=== PATIENT | female | born 1985 | race Caucasian/White ===

== ENCOUNTER 2017-03-07 17:18 | Observation (INO) | payer OTHER ==
--- NOTE | 2017-03-07 18:40 | OBPROG ---
OBG Progress Note Assessment/Plan: Assessment:cat 1 fhr otis denies pain exam /- cephalic nitrazine negative, ferning negative,polling negative amnisure negative vs wnl Plan:discharge to home with instructions fu appt on thursday in the office 03/07/17 18:37 Subjective: Came in with complaint of leaking of fluid at 1300 today. FHR (bpm): 135 FHR Pattern Variability: Moderate FHR Category: 1 Membranes: Intact ICD10 Worksheet Patient Problems: Problems Problem Status Onset ro srom Acute
--- NOTE | 2017-03-07 19:13 | GHP ---
[f rep st] HISTORY AND PHYSICAL DATE OF ADMISSION: 03/07/2017 Patient is a 31-year-old, 1, para 0, with an EDC of 03/08/2017 which gives her a gestational age of 39 and 6/7 weeks. She comes in with complaint of rupture of membranes since 1300 on 03/07/2017. States feeling positive movement. Denies bleeding. States feeling irregular contractions. The patient has been routinely being seen at [facility], [place] since 07/30/2016 at 8 weeks and 4 days. At that time, an initial ultrasound confirmed dates of 03/08/2017. There was no change. PAST MEDICAL HISTORY: Benign. PAST SURGICAL HISTORY: [place] teeth extractions, ear tubes, fractured back, left breast lumpectomy, previous climbing accident. Other medical history of pescatarian diet. FAMILY HISTORY: Noncontributory. GYNECOLOGICAL HISTORY: Abnormal Pap with , will re-pap . Previously patient using condoms and OCPs for contraception. SOCIAL HISTORY: Patient is . No alcohol history. No drug history. PHYSICAL EXAMINATION: GENERAL: Patient is awake, alert, oriented x3. LUNGS: Clear bilaterally. ABDOMEN: Bowel sounds are positive in all 4 quadrants. EXTREMITIES: DTRs are 1+ bilaterally. No clonus. Homans' sign is negative bilaterally. GENITOURINARY: The uterus was soft on palpation. MEDICATIONS: Patient is taking vitamins and DHA. ALLERGIES: Patient is sensitive to Ceclor and Vicodin and allergic to penicillin. LABORATORIES: Patient is O positive, antibody negative. RPR is nonreactive. Rubella is immune. Hepatitis is negative. HIV is negative. Trio screen was negative. TSH on 08/13/2016 was 1.2. Pap was within normal limits. HPV was negative. Gonorrhea and chlamydia are negative. AFP was negative. Verify was negative. One hour GTT was within normal limits. Twenty-eight week hematocrit was within normal limits at 63.3. PLAN OF CARE: 1. Today speculum exam. 2. Nitrazine was negative. Ferning was negative. Pooling was negative. An AmniSure was sent that was found to be negative. An exam was done as the patient is otis irregularly without pain. Some change to the cervix from previous exam last week. Patient at that time was 1:250 and ballotable. At this time, today 2 cm, 75% effaced, -2 cephalic. Again, patient denies regular contractions and pain with the contractions. Plan of care is discharge to home with instructions of reasons to return and follow up on Thursday for a clinic appointment. /[id number]/MODL MTDD
== END 2017-03-07 19:07 | disposition home or self-care (01) ==
LOC: FLD 17:18
PROVIDERS: ADMIT Advanced Practice Midwife; ATTEND Advanced Practice Midwife
DX: Z03.79 Encounter for other suspected maternal and fetal conditions ruled out (principal); Z3A.39 39 weeks gestation of pregnancy
CPT/HCPCS: 59025; G0378

== ENCOUNTER 2017-03-10 00:58 | Inpatient (IN) | payer OTHER ==
--- NOTE | 2017-03-10 02:55 | OBPROG ---
OBG Progress Note Assessment/Plan: Assessment:cat 1 fhr elevated bp with admit to the hospital PI labs contractions stronger at home closer together contractions q7-8 minutes coping well through the pain exam /-1 cephalic bow intact Plan:expectant management of labor [facility] labs 03/10/17 02:53 Subjective: I am feeling tired. I really have not gotten up much . Encouraged patient to change positions to assist with change cervix - SVE Dilation (cm): 3 Effacement (%): 75 Station: 0 FHR (bpm): 125 FHR Pattern Variability: Moderate FHR Category: 1 Membranes: Intact - Physical Exam General Appearance: WD/WN, alert, no apparent distress Respiratory: chest non-tender, lungs clear, normal breath sounds Cardiac/Chest: regular rate, rhythm Abdomen: normal bowel sounds Membranes: Intact Extremities: normal range of motion, Vilma's sign (negative bilaterally) DTR- Lower Extremities: Knee (R): 1+, Knee (L): 1+ (no clonus bilaterally) Skin: normal color, warm/dry Neuro/Psych: no motor/sensory deficits, alert, normal mood/affect, oriented x 3 ICD10 Worksheet Patient Problems: Problems Problem Status Onset ro labor Acute
[2017-03-10 03:32] LABS: ALANINE AMINOTRANSFERASE 25 IU/L (9-52); ASPARTATE AMINOTRANSFERASE 23 IU/L (14-46); BILIRUBIN,TOTAL 0.4 mg/dL (0.1-1.4); BILIRUBIN-CONJUGATED 0.3 mg/dL (0.0-0.5); BILIRUBIN-UNCONJUGATED 0.1 mg/dL (0.0-1.1); CREATININE 0.7 mg/dL (0.6-1.0); GLOMERULAR FILTRATION RATE > 60; LACTATE DEHYDROGENASE 441 IU/L (313-618); URIC ACID 5.7 mg/dL (2.5-6.8)
[2017-03-10 03:40] LABS: % IMMATURE GRANULYOCYTES 0.8 % (0.0-1.1); ADD DIFF? NO; ADD MORPH? NO; ADD SCAN? NO; ATYPICAL LYMPHOCYTE FLAG 10 (0-99); FRAGMENT RBC FLAG 0 (0-99); HEMATOCRIT 35.9 % (38.0-47.0); HEMOGLOBIN 12.3 g/dL (12.6-16.3); LEFT SHIFT FLG 0 (0-99); LIPEMIA HEMOLYSIS FLAG 90 (0-99); MEAN CELL HEMOGLOBIN 31.6 pg (27.9-34.1); MEAN CELL HEMOGLOBIN CONCENTR. 34.3 g/dL (32.4-36.7); MEAN CELL VOLUME 92.3 fL (81.5-99.8); MEAN PLATELET VOLUME 10.9 fL (8.7-11.7); PLATELET CLUMPS FLAG 30 (0-99); PLATELET COUNT 209 10^3/uL (150-400); RED BLOOD CELL COUNT 3.89 10^6/uL (4.18-5.33); RED CELL DISTRIBUTION WIDTH 13.4 % (11.5-15.2)
[2017-03-10] MEDS ORDERED: OXYTOCIN/RINGERS LACTATE 1,000 ML IV PRN (04:35)
[2017-03-10] MEDS ORDERED: TERBUTALINE SULFATE 1 MG/ML VIAL IV PRN (04:35)
[2017-03-10] MEDS ORDERED: LIDOCAINE 1% 30 ML SDV SC PRN (04:35)
[2017-03-10] MEDS ORDERED: EPSOM SALT 454 GM TP PRN (04:35)
[2017-03-10] MEDS ORDERED: OLIVE OIL 118 ML BTL MISC PRN (04:35)
[2017-03-10] MEDS ORDERED: IBUPROFEN 600 MG TAB PO PRN (04:35)
[2017-03-10] MEDS ORDERED: LR 1,000 ML IV PRN (04:35)
--- NOTE | 2017-03-10 04:35 | OBPROG ---
OBG Progress Note Assessment/Plan: Assessment:cat 1 fhr elevated bp with admit to the hospital PIH labs contractions stronger at home closer together contractions q7-8 minutes coping well through the pain exam /- cephalic bow intact pi labs wnl Plan:admit for labor 03/10/17 02:53 03/10/17 04:33 Subjective: Feeling pain. Contractions not closer together however patient states stronger I could not sleep Objective: 03/10/17 03:09 03/10/17 03:09 Uric Acid 5.7 mg/dL (2.5-6.8) 03/10/17 03:09 Total Bilirubin 0.4 mg/dL (0.1-1.4) 03/10/17 03:09 Conjugated Bilirubin 0.3 mg/dL (0.0-0.5) 03/10/17 03:09 Unconjugated Bilirubin 0.1 mg/dL (0.0-1.1) 03/10/17 03:09 AST 23 IU/L (14-46) 03/10/17 03:09 ALT 25 IU/L (9-52) 03/10/17 03:09 Lactate Dehydrogenase 441 IU/L (313-618) 03/10/17 03:09 - SVE Dilation (cm): 5 Effacement (%): 80 Station: -1 Current Contraction Pattern: Regular FHR (bpm): 135 FHR Pattern Variability: Moderate FHR Category: 1 Membranes: Intact ICD10 Worksheet Patient Problems: Problems Problem Status Onset ro labor Acute
[2017-03-10] MEDS ORDERED: PHENYLEPHRINE HCL 100 MCG/ML SYR ONE (05:33)
[2017-03-10] MEDS ORDERED: fentaNYL 2MCG/ML/BUP 0.1% RTU 100 ML BAG EP ONE (05:33)
[2017-03-10] MEDS ORDERED: ONDANSETRON 4 MG/2 ML VIAL IVP PRN (05:38)
[2017-03-10] MEDS ORDERED: LR 500 ML IV SCH (06:00)
[2017-03-10] MEDS ORDERED: fentaNYL 2MCG/ML/BUP 0.1% RTU 100 ML EP SCH (06:00)
--- NOTE | 2017-03-10 07:21 | GHP ---
[f rep st] HISTORY AND PHYSICAL DATE OF ADMISSION: 03/10/2017 HISTORY OF PRESENT ILLNESS: The patient is a 31-year-old 1, para 0, with an EDC of 03/08/20 17, which gives her a gestational age of 40 and 1/7 weeks, who comes into Labor and delivery with co mplaints of regular contractions. On exam, initially patient was 3-4 cm, posterior, soft, cephalic, -1 station. After several hours of walking, patient has changed her cervix to 5 cm, 80-1, contract ing irregularly with a category 1 heart rate and will admit for labor. The patient states fee ling regular contractions. Denies bleeding, denies rupture of membranes. States feeling positive f etal movement. Category 1 strip. MEDICAL HISTORY: Benign. SURGICAL HISTORY: [place] tooth extractions, tubes in her ears, fractured back, left breast lumpecto my, climbing accident. Special diet. [employer]. FAMILY MEDICAL HISTORY: Noncontributory. SOCIAL HISTORY: Patient is to [place]. No smoking history, no drug history. ALLERGIES: Ceclor and Vicodin. MEDICATIONS: vitamins and DHEA. LABS: O positive, antibody negative. RPR is nonreactive. Rubella is immune. Hepatitis is negativ e. HIV is negative. Pap, gonorrhea and chlamydia are within normal limits. AFP was negative. Cinthia ifi was negative. One-hour GTT was within normal limits. Trio screen was negative. TSH was 1.2 on 08/13/2016. PHYSICAL EXAMINATION: GENERAL: Patient is awake, alert, oriented x3. LUNGS: Clear bilaterally. ABDOMEN: Bowel sounds are positive in all 4 quadrants. EXTREMITIES: DTRs were 1+ with no clonus. Homans sign is negative. On palpation, contractions are moderate to firm, somewhere in between 5-7 minutes apart. PLAN OF CARE: 1. Admit to Labor. 2. GBS negative. 3. Expectant management of labor with minimal intervention at patient request. Physician responsible is Dr. Gisselle Coronel. /[id number]/MODL
--- NOTE | 2017-03-10 13:29 | OBPROG ---
OBG Progress Note Assessment/Plan: Assessment: 31 y/o @ 40 1/7 wks in active labor Plan: s/p epidural FHTs - Cat II tracing, continue to closely monitor Will start pushing Anticipate 03/10/17 13:29 Subjective: Pt is comfortable with ctx's, no complaints. Objective: 03/10/17 03:09 03/10/17 03:09 Patient ABO/Rh O POSITIVE 03/10/17 Unknown Uric Acid 5.7 mg/dL (2.5-6.8) 03/10/17 03:09 Total Bilirubin 0.4 mg/dL (0.1-1.4) 03/10/17 03:09 Conjugated Bilirubin 0.3 mg/dL (0.0-0.5) 03/10/17 03:09 Unconjugated Bilirubin 0.1 mg/dL (0.0-1.1) 03/10/17 03:09 AST 23 IU/L (14-46) 03/10/17 03:09 ALT 25 IU/L (9-52) 03/10/17 03:09 Lactate Dehydrogenase 441 IU/L (313-618) 03/10/17 03:09 - SVE Dilation (cm): 10 Effacement (%): 100 Station: +2 Current Contraction Pattern: Regular FHR (bpm): 140 FHR Pattern Variability: Moderate FHR Category: 2 (intermittent variable decels with rashi to 90 bpm x 30 sec) Membranes: AROM Amniotic Fluid Color: Clear (At 0715) ICD10 Worksheet Patient Problems: Problems Problem Status Onset Active labor at term Acute
[2017-03-10] MEDS ORDERED: OLIVE OIL 118 ML BTL ONE (13:42)
[2017-03-10] MEDS ORDERED: LIDOCAINE 1% 30 ML SDV ONE (13:42)
[2017-03-10] MEDS ORDERED: MISOPROSTOL 200 MCG TAB ONE (13:43)
[2017-03-10] MEDS ORDERED: AMMONIA AROMATIC 1 EACH AMP IH ONE (13:43)
[2017-03-10] MEDS ORDERED: OXYTOCIN 10 UNIT/ML VIAL ONE (13:43)
[2017-03-10] MEDS ORDERED: TERBUTALINE SULFATE 1 MG/ML VIAL ONE (13:43)
[2017-03-10] MEDS ORDERED: CLINDAMYCIN 600 MG/DEXTROSE/50 ML BAG IV ONE (14:57)
[2017-03-10] MEDS ORDERED: SIMETHICONE 80 MG TAB CHEW PO PRN (15:26)
[2017-03-10] MEDS ORDERED: HYDROCORTISONE 0.5% CREAM TP PRN (15:26)
[2017-03-10] MEDS ORDERED: HYDROCODONE/APAP 5/325 TAB PO PRN (15:26)
--- NOTE | 2017-03-10 15:28 | OBPROC ---
- Labor and Delivery Onset of Contractions Date: 03/09/17 Onset of Contractions Time: 22:00 Onset of Contractions Type: Spontaneous Rupture of Membranes Date: 03/10/17 Rupture of Membranes Time: 07:10 Rupture of Membranes Type: Artificial Amniotic Fluid Color: Clear, Other (Specify) (Terminal meconium noted at delivery) Dilation Complete Time: 13:00 Delivery Type: Spontaneous Placenta Delivery Date: 03/10/17 Placenta Delivery Time: 15:12 Episiotomy/Laceration: 1st Degree Repair: 3-0, Vicryl EBL: 300 cc Complications: Nuchal Cord (x1; loose-slipped on perineum) - Medications Labor Augmentation/Induction Meds Used: None Anesthesia: Epidural - [place] Info Infant A Delivery Date: 03/10/17 Delivery Time: 15:03 Sex of : Male ("Haro") Score (1 Min): 8 Score (5 Min): 9
[2017-03-10] MEDS: GENTAMICIN 80 MG/NACL 100 ML IV SCH (17:50)
[2017-03-10] MEDS: IBUPROFEN 600 MG TAB PO PRN (19:24)
[2017-03-10] MEDS ORDERED: CLINDAMYCIN 600 MG/DEXTROSE 50 ML IV SCH (22:00)
[2017-03-10] MEDS: CLINDAMYCIN 600 MG/DEXTROSE 50 ML IV SCH (23:21)
[2017-03-11] MEDS: GENTAMICIN 80 MG/NACL 100 ML IV SCH ×2 (00:17→07:36)
[2017-03-11] MEDS: IBUPROFEN 600 MG TAB PO PRN ×4 (00:52→18:47)
[2017-03-11] MEDS: CLINDAMYCIN 600 MG/DEXTROSE 50 ML IV SCH (06:50)
[2017-03-11] MEDS: DOCUSATE SODIUM 100 MG CAP PO PRN ×2 (07:36→21:32)
--- NOTE | 2017-03-11 11:33 | OBPROG ---
OBG Progress Note Assessment/Plan: Assessment: 31 y/o PPD #1 s/p with maternal temp @ delivery now on Clinda and Gent x 24 hours. Plan: D/c antibiotics @ 24 hours. support, Ibuprofen prn, routine PPC. Likely d/c home tomorrow. 03/11/17 11:32 Subjective: Pt is doing well this am. She has good pain control of cramping and perineal soreness with Ibuprofen. No n/v, min lochia and breast feeding is going well. She has not had fevers since delivery. Objective: 03/10/17 03:09 03/10/17 03:09 Patient ABO/Rh O POSITIVE 03/10/17 Unknown Uric Acid 5.7 mg/dL (2.5-6.8) 03/10/17 03:09 Total Bilirubin 0.4 mg/dL (0.1-1.4) 03/10/17 03:09 Conjugated Bilirubin 0.3 mg/dL (0.0-0.5) 03/10/17 03:09 Unconjugated Bilirubin 0.1 mg/dL (0.0-1.1) 03/10/17 03:09 AST 23 IU/L (14-46) 03/10/17 03:09 ALT 25 IU/L (9-52) 03/10/17 03:09 Lactate Dehydrogenase 441 IU/L (313-618) 03/10/17 03:09 Temp Pulse Resp BP Pulse Ox 36.6 C 78 18 124/79 H 03/11/17 11:15 03/11/17 09:00 03/11/17 09:00 03/11/17 09:00 Uterine Position/Fundal Height: Umbilicus -2 Uterine Tone: Firm - Physical Exam General Appearance: WD/WN, alert, no apparent distress Neck: non-tender, full range of motion, supple Respiratory: chest non-tender, lungs clear, normal breath sounds Cardiac/Chest: regular rate, rhythm Abdomen: normal bowel sounds Extremities: swelling (no), Vilma's sign (neg) ICD10 Worksheet Patient Problems: Problems Problem Status Onset Active labor at term Acute
[2017-03-11] MEDS: IRON POLYSAC/IRON HEME 28 MG TAB PO SCH (12:51)
[2017-03-11 15:38] VITALS: RESP 16
[2017-03-12] MEDS: IRON POLYSAC/IRON HEME 28 MG TAB PO SCH (07:53)
[2017-03-12] MEDS: DOCUSATE SODIUM 100 MG CAP PO PRN (07:53)
[2017-03-12 11:15] VITALS: BP 117/81; PULSE 80; TEMP 98.3; O2SAT 97
--- NOTE | 2017-03-12 12:26 | SOAPPROG ---
SOAP Progress Note Assessment/Plan: Assessment: Doing well. Tolerating PO, pain controlled, voiding, no itching, no evidence of LAST. Happy with the labor experience. Plan: Continue routine cares. 03/12/17 12:24 03/12/17 12:26 Subjective: Patient seen on post-. S/p epidural analgesia for labor and delivery. Objective: Vital Signs Temp Pulse Resp BP Pulse Ox 36.8 C 80 16 117/81 H 97 03/12/17 08:10 03/12/17 08:10 03/12/17 08:10 03/12/17 08:10 03/12/17 08:10 Laboratory Results 03/10/17 03:09 03/10/17 03:09 03/11/17 03/12/17 03/13/17 05:59 05:59 05:59 Output Total 300 Balance -300 ICD10 Worksheet Patient Problems: Problems Problem Status Onset Active labor at term Acute
--- NOTE | 2017-03-12 12:44 | SOAPPROG ---
SOAP Progress Note Assessment/Plan: Assessment: PPD 2 s/p fever in pushing but none after abx d/c'd 24 hrs ago Plan: D/C to boarder until tomorrow 03/12/17 12:41 Subjective: Pt doing well. Bld has decreased. urinating fine. Baby is latching well. Bottom sore but manageable with ibu. 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 Objective: Vital Signs Temp Pulse Resp BP Pulse Ox 36.8 C 80 16 117/81 H 97 03/12/17 08:10 03/12/17 08:10 03/12/17 08:10 03/12/17 08:10 03/12/17 08:10 Laboratory Results 03/10/17 03:09 03/10/17 03:09 03/11/17 03/12/17 03/13/17 05:59 05:59 05:59 Output Total 300 Balance -300 Physical Exam - Physical Exam General Appearance: WD/WN Abdomen: non-tender, soft, other (FF at umb -1) Pelvic Exam: vaginal bleeding (normal lochia) Extremities: non-tender, pedal edema (minimal) Neuro/Psych: normal mood/affect ICD10 Worksheet Patient Problems: Problems Problem Status Onset Active labor at term Acute (spontaneous vaginal delivery) Acute
== END 2017-03-12 16:45 | disposition home or self-care (01) | DRG 775 ==
LOC: FLD 00:58 → OBSVTOIN 00:58 → FOB 18:45
PROVIDERS: ADMIT Advanced Practice Midwife; ATTEND Obstetrics & Gynecology
DX: O63.1 Prolonged second stage (of labor) (principal); O41.1230 Chorioamnionitis, third trimester, not applicable or unspecified; O77.0 Labor and delivery complicated by meconium in amniotic fluid; O69.81X0 Labor and delivery complicated by cord around neck, without compression, not applicable or unspecified; O70.0 First degree perineal laceration during delivery; Z3A.40 40 weeks gestation of pregnancy; Z37.0 Single live birth
CPT/HCPCS: J1580; J2370; J2590; J3105